=== PATIENT | female | born 1990 | race Caucasian/White ===

== ENCOUNTER → 2017-03-13 06:29 | Observation (INO) ==
--- NOTE | 2017-03-13 02:55 | OB/GYN Progress Note ---
Date of Encounter: 03/13/17 Time of Encounter: 02:35 - Assessment and Plan (1) 38 weeks gestation of Current Visit: Yes Status: Acute (2) Uterine contractions Current Visit: Yes Status: Acute - Negative nitrazine and fern test. - UDS - UA - NST reactive Cervix 2-3/80/-1 if no change on serial exam will discharge back to [facility] with labor and when to return precautions. Subjective - Subjective Principal diagnosis: Labor evaluation Interval history: Patient is a 26 YO F at 38 2/7 weeks gestation with a PMH of delivery and drug abuse that presents for labor evaluation. Patient says that she has experienced vaginal fluid leakage for the past 4 days. She denies any vaginal bleeding. She states that she has also been having contractions 4-7 minutes apart for the past 4 days as well. She admits to good movement. She denies any SEPULVEDA, vision changes, nausea, vomiting, fever, chills, dysuria, and diarrhea. She is currently on subutex. Patient normally smokes 1/2 ppd, but says she has not smoked for the past 3 weeks. Patient is currently in correction and has her care done at [facility]. Antepartum ROS: loss of fluid, movement normal, contractions, no vaginal bleeding Objective - Vital Signs Vital Signs: Intake and Output 03/12/17 03/12/17 03/13/17 15:59 23:59 07:59 Other: Weight 66.1 kg Patient Weight 03/13/17 23:59 Weight 66.1 kg BP: 124/73 HR: 58 FHR: 133 - Exam FHR: auscultation normal FHR comments: baseline 120/ reactive Auscultation: bilateral: normal Abdomen: Present: normal appearance, soft, gravid Cervical dilation: 2-3 cm Cervix effacement: 80% station: -1
[2017-03-13 03:26] LABS: Bilirubin,Urine Negative (Negative); Blood,Urine Negative (Negative); Clarity,Urine Clear (Clear); Color,Urine Yellow (Yellow); Glucose,Urine (UA) Normal (Normal); Ketones,Urine Negative (Negative); Leukocyte Esterase,Urine Negative (Negative); Nitrite,Urine Negative (Negative); PH,Urine 6.5 pH Units (5.0-8.0); Protein,Urine Trace mg/dL (Neg-Trace); Specific Gravity,Urine 1.028 (1.010-1.025); Urobilinogen,Urine Normal (Normal)
[2017-03-13 03:28] LABS: Bacteria,Urine None Seen per hpf (None-Few); Hyaline Casts,Urine None Seen per lpf (None-Few); RBC,Urine 0-3 per hpf (0-3); Squamous Epithelial Cell,Urine Many per lpf (None-Few); WBC,Urine 0-3 per hpf (0-3)
[2017-03-13 03:31] LABS: Amphetamine Screen,Urine Negative ng/mL (Cutoff=1000); Barbiturate Screen,Urine Negative ng/mL (Cutoff=200); Benzodiazepines Screen,Urine Negative ng/mL (Cutoff=200); Cannabinoid Screen,Urine Negative ng/mL (Cutoff = 50); Cocaine Screen,Urine Negative ng/mL (Cutoff= 300); Opiate Screen,Urine Negative ng/mL (Cutoff=300); Phencyclidine Screen,Urine Negative ng/mL (Cutoff=25)
== END | disposition other institution (70) ==
LOC: 1NENULAB
PROVIDERS: ADMIT Advanced Practice Midwife; ATTEND Advanced Practice Midwife

== ENCOUNTER 2017-03-15 00:45 | Inpatient (IN) ==
--- NOTE | 2017-03-14 21:03 | Anesthesia Evaluation PreOp ---
Date of Encounter: 03/14/17 Time of Encounter: 21:01 - Past History Planned Operation: vaginal del, spont labor Cardiac History: Denies any Significant Hx, Other (anemia,) Pulmonary History: Smoker EMU FARMER History: Other (chronic back pain, with parathesia bilateral inner thighs down 2inches according to patient, none position dependant.) Other Medical History: Hepatic (Hep C+.), Other (herpes.) Anesthesia History: Past Anesthesia (previous epidural and PDPH, required 2 blood patches.) Alcohol Use: none Drug use: IV Drug Use, prescription drug abuse, other (on suboxone 12mg QD on occ.) Medications and Allergies Buprenorphine HCl [Subutex] 4 mg SL TID 03/14/17 [History] Ferrous Sulfate [High Potency Iron] 134 mg PO DAILY 03/14/17 [History] Pnv Cmb#21/Iron/Folic Acid [ Complete Caplet] 1 each PO DAILY 03/14/17 [ History] 3 Allergy/AdvReac Type Severity Reaction Status Date / Time No Known Allergies Allergy Verified 03/14/17 20:38 Anesthesia Exam - HEENT Pupil (Motor): Pupils equal Mallampati: II Teeth: Poor dentition Oral Opening: Greater than 3 - EMU FARMER LOC: Oriented EMU FARMER Motor: Normal RUE, Normal LUE, Normal RLE, Normal LLE, Normal Face EMU FARMER Sensory: Normal: RUE, LUE, RLE, LLE, Face - Cardiac Rhythm: Regular Murmur: None - Pulmonary Breath Sounds: bilateral Clear Respiratory Effort: Symmetrical Anesthesia Assess/Plan ASA Score: 2 Modified Ashley Scale for Level of Consciousness: Cooperative, oriented, and tranquil Anesthetic Plan: General, Regional Monitoring Plan: Standard Monitors
[2017-03-14 21:05] LABS: Amphetamine Screen,Urine Negative ng/mL (Cutoff=1000); Barbiturate Screen,Urine Negative ng/mL (Cutoff=200); Benzodiazepines Screen,Urine Negative ng/mL (Cutoff=200); Cannabinoid Screen,Urine Negative ng/mL (Cutoff = 50); Cocaine Screen,Urine Negative ng/mL (Cutoff= 300); Opiate Screen,Urine Negative ng/mL (Cutoff=300); Phencyclidine Screen,Urine Negative ng/mL (Cutoff=25)
--- NOTE | 2017-03-15 00:19 | OB/GYN History & Physical ---
Date of Encounter: 03/15/17 Time of Encounter: 00:04 Assessment and Plan (1) 38 weeks gestation of Current visit: No Status: Acute (2) Uterine contractions Current visit: No Status: Acute Pt 3-4 on admission, now 5cm admit to labor and delivery PCN for GBS Nubain and epidural as desired. Anticipate (3) Positive GBS test Current visit: Yes Status: Acute Will treat with PCN if admitted for labor (4) HSV-2 seropositive Current visit: Yes Status: Acute Not on valtrex suppressive therapy, Speculum exam shows no lesions. (5) Chest pain Current visit: Yes Status: Acute Reports pain for nurses, denies pain during CNM exam, EKG obtained shows bradycardia, with possible right ventricular conduction delay, borderline ECG, Hospitalist consulted. Qualifiers: Chest pain type: unspecified Qualified Code(s): R07.9 - Chest pain, unspecified (6) Hepatitis C Current visit: Yes Status: Acute Qualifiers: Viral hepatitis chronicity: chronic Hepatic coma status: without hepatic coma Qualified Code(s): B18.2 - Chronic viral hepatitis C History of Present Illness Chief complaint: Contractions HPI: Ms. Quick is a 26 year old female presents to triage with complaints of contractions. Pt states she has been having contractions for days, in triage for evaluation on Wednesday AM, states contractions are stronger and more intense than before. Reports good movement, pt states frequent light pink vaginal spotting, denies heavy bright red vaginal bleeding or leaking of fluid. Pt with no other complaints on arrival, but after 2.5 hours of monitoring pt states she felt some chest pain that to RN. Denies any current chest pain during CNM assessment. Pt states the pain was brief and was over her epigastric region when asked to point location. Pt states has had heartburn this last month of . HSV+ but states has never had an outbreak, complicated by history of 35 week delivery, IM progesterone therapy, opiate dependence on subutex, HSV +, Hepatitis C Labs, A+, Rubella immune, GBS +, HSV 1&2 serologies positive, All other serologies negative. Past Med Surg Social Fam HX - Past Medical History Medical history: no medical history Psychiatric history: no psych history - Past Surgical History Surgical History: other - Social History Smoking Status: Current every day smoker Packs per day: less than 1/2 pack a day Smokeless Tobacco Status: No Alcohol use: none Drug use: IV Drug Use, prescription drug abuse, other (on suboxone 12mg QD on occ.) - Family History Mother History Unknown: Yes Living Status: Obstetrical History - Pregnancies : 3 Para: 1 Term: 0 : 1 Ab's: 1 Livin Medications and Allergies Buprenorphine HCl [Subutex] 4 mg SL TID 03/14/17 [History] Ferrous Sulfate [High Potency Iron] 134 mg PO DAILY 03/14/17 [History] Pnv Cmb#21/Iron/Folic Acid [ Complete Caplet] 1 each PO DAILY 03/14/17 [ History] 3 Allergy/AdvReac Type Severity Reaction Status Date / Time No Known Allergies Allergy Verified 03/14/17 20:38 Exam - Constitutional Constitutional: well developed, well nourished, no acute distress, average body habitus - Neck Neck exam: full ROM - Lungs Respiratory exam: CTAB - Cardiovascular Cardiovascular exam: RRR - Abdomen Abdomen: Present: bowel sounds normal, gravid, non tender - Extremities Extremities exam: normal capillary refill, normal inspection Deep Tendon Reflex Grade: 2+ Normal - Vagina Vagina: Present: normal moisture - Cervix Dilation: 5 (Per RN) - Uterus Uterus exam: Present: normal size, normal contour Results All other labs normal. - VTE Reasons for not Prescribing Prophylaxis: Treatment not Indicated - Low risk for VTE
[~2017-03-15 00:45] MED LIST: Famotidine 20 MG/2 ML VIAL IVP PRN; Metoclopramide 10 MG/2 ML VIAL IVP PRN; Naloxone 0.4 MG/ML INJ IVP PRN; Ondansetron 4 MG/2 ML VIAL IVP PRN; Ringers Solution, Lactated 1,000 ML IVC SCH
[2017-03-15] MEDS ORDERED: Penicillin G Potassium 5,000,000 UNIT in D5% in Water 100 ML IVPB ONE (00:48)
[2017-03-15] MEDS ORDERED: Ringers Solution, Lactated 1,000 ML ONE ×2 (00:53→01:56)
[2017-03-15 01:17] LABS: Basophils % 0.2 %; Eosinophils # 0.1 K/mcL (0.0-0.6); Eosinophils % 1.2 %; Hematocrit 30.9 % (35.3-44.9); Hemoglobin 10.6 g/dL (11.5-15.4); Immature Granulocytes % 0.3 % (0-4); Immature Platelets 8.5 % (1.1-6.1); Lymphocytes # 1.8 K/mcL (0.6-4.6); Lymphocytes % 20.2 %; Mean Corpuscular HGB Conc 34.3 g/dL (31.6-35.5); Mean Corpuscular Hemoglobin 31.7 pg (28.0-33.3); Mean Corpuscular Volume 92.5 fL (83.0-100.0); Mean Platelet Volume 11.2 fL (9.4-12.4); Monocytes # 0.6 K/mcL (0.0-1.3); Monocytes % 6.2 %; Neutrophils # 6.4 K/mcL (1.6-8.9); Platelet Count 137 K/mcL (140-400); Red Blood Count 3.34 M/mcL (3.82-4.97); Red Cell Distribution Width 13.4 % (11.5-14.5); Segmented Neutrophils % 71.9 %
[2017-03-15] MEDS ORDERED: Epidural Premix (fent/bupiv) 110 ML EP ONE ×2 (01:28→06:58)
--- NOTE | 2017-03-15 02:05 | Anesthesia Procedures ---
Date of Encounter: 03/15/17 Time of Encounter: 01:41 Procedures: Anesthesia - Epidural/Spinal Patient ID/Chart reviewed: Yes Patient examined: Yes OB Eval: Gestational age: term OB Eval: : 3 OB Eval: Hx Para: 1 OB Eval: Dilated at (cm): 5 OB Eval: Contractions: Non-stressed pattern Consent Obtained: Yes Supplemental Oxygen: None/Room Air Site Prep: Aseptic Technique, Sterile prep and drape, 0.5% Chlorhexidine/Alcohol Patient position: upright Local Anesthetic: Lidocaine 1% Amount of Local Anesthetic used: 2 Touhy Needle Gauge: 18 Touhy Needle Depth (cm): 5 Catheter Depth at Skin (cm): 9 Test Dose (1.5% Lido + Epi): Volume given (mls): 3 Test Dose Result: Negative Loading Dose: Other: 12ml from solution Loading Dose Administered: Thru Catheter Infusion Med: 0.125% Bupivacaine w/ 2 mcg/ml Fentanyl Infusion Rate (mls/hr): [address]: Tegaderm, Tape Interspace Used: L3-L4 Loss of Resistance (MARIA DE JESUS): Yes (saline) Blood: No CSF: No Paresthesia: No Procedure: vss though out, FHR stable per RN's
--- NOTE | 2017-03-15 03:49 | OB Labor Progress Note ---
Date of Encounter: 03/15/17 Time of Encounter: 03:42 Labor Progress Note - Subjective Subjective: Pt resting comfortable with epidural . - Cervix Cervix: 6/80/0 - Heart Tones Heart Tones: 135/moderate/+accels/-decels - [place]: 2-4 - Plan Plan: Continue current management PCN for GBS Anticipate
--- NOTE | 2017-03-15 03:55 | Internal Medicine Consult Note ---
Date of Encounter: 03/15/17 Time of Encounter: 01:00 - Assessment and Plan (1) Chest pain Current Visit: Yes Status: Acute Assessment and plan: -Symptoms have resolved and no ST/T-wave changes on EKG. -No further medical management needed. -Will sign off. Please call hospital team with any further questions or concerns. Qualifiers: Chest pain type: unspecified Qualified Code(s): R07.9 - Chest pain, unspecified Internal Medicine - CN: HPI - Data of Consult Consult date: 03/15/17 Requesting Physician: Fan Coronado MD - Consult Narrative Reason for consult: chest pain History of present illness: Patient is a 26-year-old female 3 para 1 at 30 weeks gestation with new onset of chest pain. Patient reported of an intermittent chest pressure that has now resolved. Of note, patient has been evaluated in the past for chest pressure at [facility] with a negative workup. Patient does admit to mood disorders including bipolar and anxiety and admits to not taking any medications. EKG was obtained by care companion and reviewed by myself which showed no acute ST/T- wave changes; vital signs stable per care companion. She is a smoker but no other risk factors. Past Med Surg Social Fam HX - Past Medical History Medical history: no medical history Psychiatric history: no psych history - Past Surgical History Surgical History: other - Social History Smoking Status: Current every day smoker Packs per day: less than 1/2 pack a day Smokeless Tobacco Status: No Alcohol use: none Drug use: IV Drug Use, prescription drug abuse, other (on suboxone 12mg QD on occ.) - Family History Mother History Unknown: Yes Living Status: All systems: reviewed and no additional remarkable complaints except as stated ( chest pressure) Internal Medicine - CN: Meds Buprenorphine HCl [Subutex] 4 mg SL TID 03/14/17 [History] Ferrous Sulfate [High Potency Iron] 134 mg PO DAILY 03/14/17 [History] Pnv Cmb#21/Iron/Folic Acid [ Complete Caplet] 1 each PO DAILY 03/14/17 [ History] 3 Allergy/AdvReac Type Severity Reaction Status Date / Time No Known Allergies Allergy Verified 03/14/17 20:38 Internal Medicine - CN: Exam - Constitutional General appearance IM: Present: A&O X 3 - Head Head exam: Present: normocephalic - Eye Eye exam: Present: normal appearance - ENT ENT exam: Present: mucous membranes moist - Cardiovascular Additional comments: Regular rate and rhythm no murmurs rubs or gallops - GI/Abdominal Additional comments: Gravid abdomen - Extremities Exam Extremities exam IM: Present: pedal edema - Neurological Exam Neurological exam: Present: alert, oriented X3 - Psychiatric Psychiatric exam: Present: normal mood - Skin Skin exam IM: Present: normal color Internal Medicine - CN: Reslt - Labs CBC & Chem 7: 03/15/17 01:00 Labs: Short CBC 03/15/17 Range/Units 01:00 WBC 8.9 (4.3-11.1) K/mcL Hgb 10.6 L (11.5-15.4) g/dL Hct 30.9 L (35.3-44.9) % Plt Count 137 L (140-400) K/mcL Neutrophils # 6.4 (1.6-8.9) K/mcL
[2017-03-15] MEDS ORDERED: Penicillin G Potassium 2,500,000 UNIT in D5% in Water 100 ML IVPB SCH (04:30)
[2017-03-15] MEDS ORDERED: Oxytocin 20 units/ LR 1000 mL 20 UNIT/1,000 ML BAG IVC ONE (08:05)
--- NOTE | 2017-03-15 08:09 | OB Labor Progress Note ---
Date of Encounter: 03/15/17 Time of Encounter: 08:07 Labor Progress Note - Subjective Subjective: Pt resting comfortably in bed, asleep. When awakened, states she is having some slight back pain. - Cervix Cervix: Ant lip, 0 station - Heart Tones Heart Tones: 140 bpm, moderate variability, + 15x15 accels, no decels. - Minerva Minerva: 3 min - Interventions Interventions: SVE, AROM for moderate amount of clear fluid. - Plan Plan: Continue labor management Anticipate
--- NOTE | 2017-03-15 10:54 | OB/GYN Procedure Note ---
Delivery - Delivery Date: 03/15/17 Provider: Neelam Staley (Jasmeet Tavares RN) Intrapartum events: none Delivery induction: none Delivery augmentation: rupture of membranes Delivery monitor: external FHT, external uterine Anesthesia: epidural Estimated Blood Loss: 200 - Infant (s) A Infant Delivery Date: 03/15/17 Delivery Time: 10:36 Presentation: vertex Position: LALIT Route of delivery: Gender: Female Viability: Viable Pounds: 6 Ounces: 9 Weight Gram: 2965 kg at 1 minute: 9 at 5 mins: 9 Shoulder Dystocia: not encountered Placenta: spontaneous Cord: 3 umbilical vessels - Repair Episiotomy: none Laceration Description: Periurethral (Right side, Hemostatic, no repair) - Complications Delivery complications: none Delivery comments: Under maternal effort spontaneous vaginal delivery of viable female infant over intact perineum. Right periurethral laceration noted, hemostatic, no repair. to maternal abdomen, cord clamped and cut after pulsation ceased. Spontaneous delivery of intact placenta. EBL 200 mL. No nuchal cord, shoulder dystocia or meconium encountered. Mother and stable for 2 hour recovery. - Disposition Mom disposition: stable in LDR disposition: stable in LDR
[2017-03-15] MEDS ORDERED: Measles/Mumps/Rubella Vacc 0.5 ML VIAL SQ PRN (11:04)
[2017-03-15] MEDS ORDERED: Ibuprofen 600 MG TABLET PO PRN (11:04)
[2017-03-15] MEDS ORDERED: Oxytocin 20 units/ LR 1000 mL 20 UNIT/1,000 ML BAG IVC SCH (11:04)
[2017-03-15] MEDS ORDERED: Acetaminophen 325 MG TABLET PO PRN (11:04)
[2017-03-15] MEDS: *HR* Buprenorphine HCl 8 MG TAB.SUBL SL SCH ×3 (11:32→21:18)
--- NOTE | 2017-03-15 15:13 | Electrocardiograph Report ---
[address] [place], [place] [address] Test Date: 2017-03-15 Pat Name: Kita Quick Department: 101 Room: [facility] Gender: F Student Teacher: BERNARDA : 1990 Requested By: Steffi Taylor Order Number: [id number] Reading MD: Bravo Marie MD Measurements Intervals Martin Rate: 53 P: 19 ME: 147 QRS: 74 QRSD: 89 T: 9 QT: 409 QTc: 393 Interpretive Statements SINUS BRADYCARDIA Electronically Signed On 03-15-2017 15:12:23 EST by Bravo Marie MD
[2017-03-16 08:11] VITALS: BP 118/64
[2017-03-16] MEDS: *HR* Buprenorphine HCl 8 MG TAB.SUBL SL SCH ×2 (08:29→14:31)
--- NOTE | 2017-03-16 08:35 | Discharge Summary ---
Date of Encounter: 03/16/17 Time of Encounter: 06:15 - Discharge Diagnosis (1) Status post normal vaginal delivery Priority: Primary Status: Resolved (2) HSV-2 seropositive Priority: Primary Status: Acute (3) Hepatitis C Priority: Primary Status: Chronic Qualifiers: Viral hepatitis chronicity: chronic Hepatic coma status: without hepatic coma Qualified Code(s): B18.2 - Chronic viral hepatitis C (4) Positive GBS test Priority: Primary Status: Acute (5) 38 weeks gestation of Priority: Primary Status: Acute - Discharge Medications Prescriptions: Ibuprofen [Motrin] 600 mg PO Q6HR PRN #60 tablet PRN Reason: Cramping Docusate [Colace] 100 mg PO BID #30 capsule Home Medications: Buprenorphine HCl [Subutex] 4 mg SL TID 03/14/17 [History] Pnv Cmb#21/Iron/Folic Acid [ Complete Caplet] 1 each PO DAILY 03/14/17 [ History] Docusate [Colace] 100 mg PO BID #30 capsule 03/16/17 [Rx] Ibuprofen [Motrin] 600 mg PO Q6HR PRN #60 tablet 03/16/17 [Rx] Allergies/Adverse Reactions: 3 Allergy/AdvReac Type Severity Reaction Status Date / Time No Known Allergies Allergy Verified 03/14/17 20:38 Data Procedures and tests throughout hospitalization: Laboratory Tests 03/14/17 03/15/17 20:49 01:00 WBC 8.9 RBC 3.34 L Hgb 10.6 L Hct 30.9 L MCV 92.5 MCH 31.7 MCHC 34.3 RDW 13.4 Plt Count 137 L MPV 11.2 Immature Gran % 0.3 Seg Neutrophils % 71.9 Lymphocytes % 20.2 Monocytes % 6.2 Eosinophils % 1.2 Basophils % 0.2 Neutrophils # 6.4 Lymphocytes # 1.8 Monocytes # 0.6 Eosinophils # 0.1 Basophils # 0.0 Immature Plt Fraction 8.5 H Urine Opiates Screen Negative Ur Barbiturates Screen Negative Ur Phencyclidine Scrn Negative Ur Amphetamines Screen Negative U Benzodiazepines Scrn Negative Urine Cocaine Screen Negative U Marijuana (THC) Screen Negative Date of admission: 03/15/17 00:45 Consults: 03/15/17 11:04 Consult to Chronograph Operator [CONS] Routine Comment: Vaginal delivery, consult needed Consult to Numerical Control Nesting Operator [CONS] Routine Reason for SW Consult: Subutex Discharging clinician: Salvador Chew Anticipated date of discharge: 03/16/17 - Patient Status Disposition: Home, Self-Care Condition: Good Functional capacity at discharge: independent ambulation Overall status at discharge: patient is progressing back to baseline - Discharge Instructions - Diet and Activity Activity: resume usual activities as tolerated Diet: regular diet Hospital Course Reason for admission: IUP at term Delivery: Episiotomy: none Laceration: other (Right periurethral, hemostatic, no repair) Other procedures: none complications: none Discharge diagnosis: IUP at term delivered baby: female Hospital course: Ms. Quick is a 26 year old female that presented to triage with complaints of contractions. Pt stated she had been having contractions for days , in triage for evaluation on Wednesday AM, stated contractions were stronger and more intense than before. Reported good movement, stated frequent light pink vaginal spotting, denied heavy bright red vaginal bleeding or leaking of fluid. Pt with no other complaints on arrival, but after 2.5 hours of monitoring pt stated she felt some chest pain to RN. Denied any current chest pain during CNM assessment. Pt stated the pain was brief and was over her epigastric region when asked to point location. Pt stated she has had heartburn this last month of . EKG revealed sinus major with no ischemic changes. HSV+ but states has never had an outbreak, complicated by history of 35 week delivery, IM progesterone therapy, opiate dependence on subutex, HSV +, Hepatitis C. Under maternal effort spontaneous vaginal delivery of viable female over intact perineum. Right periurethral laceration noted, hemostatic, no repair. to maternal abdomen, cord clamped and cut after pulsation ceased. Spontaneous delivery of intact placenta. EBL 200 mL. No nuchal cord, shoulder dystocia or meconium encountered. When seen today, patient says she is doing well and is in good mood. She has been bottle feeding since the baby has been having trouble latching on. She has been complaining of swelling in both her legs. She has a good appetite and has been able to ambulate well. She has had a bowel movement and has been able to void. Her vaginal bleeding has been light and improving since the delivery. She denies any chest pain, headaches, nausea, vomiting, fever, chills, or shortness of breath. Patient is currently serving a retirement sentence and will be discharged back to police custody. She will follow-up with her PCP provided in retirement. Delivery - Delivery Date: 03/15/17 Provider: Neelam Staley (Jasmeet Tavares RN) Intrapartum events: none Delivery induction: none Delivery augmentation: rupture of membranes Delivery monitor: external FHT, external uterine Anesthesia: epidural Estimated Blood Loss: 200 - (s) Infant A Infant Delivery Date: 03/15/17 Infant Delivery Time: 10:36 Presentation: vertex Position: LALIT Route of delivery: Gender: Female Viability: Viable Pounds: 6 Ounces: 9 Weight Gram: 2965 kg at 1 minute: 9 at 5 mins: 9 Shoulder Dystocia: not encountered Placenta: spontaneous Cord: 3 umbilical vessels - Repair Episiotomy: none Laceration Description: Periurethral (Right side, Hemostatic, no repair) - Complications Delivery complications: none Time Attestation: Total time spent providing and/or coordinating discharge services: Time Spent: Less than 30 minutes Exam - Constitutional Vitals: Temp Pulse Resp BP Pulse Ox 97.6 F 48 12 118/64 99 03/16/17 08:00 03/16/17 08:00 03/16/17 08:00 03/16/17 08:00 03/16/17 08:00 General appearance IM: A&O X 3, pleasant, no acute distress, answers questions appropriately - Respiratory Respiratory exam: Present: CTAB - Cardiovascular Cardiovascular exam IM: Present: RRR, +S1, +S2 - GI/Abdominal GI/Abdominal exam IM: normal bowel sounds, soft, tenderness (Minor diffuse tenderness. ) - Uterine Tone: Firm - Extremities Exam Extremities exam IM: Present: full ROM, normal inspection, pedal edema (+1 pitting edema bilaterally. ), radial pulses palpable and symmetrical
[2017-03-16] MEDS ORDERED: Prenatal Vit/FA 1 EACH TABLET PO SCH (09:00)
[2017-03-16] MEDS ORDERED: FLUARIX QUAD 2017-18 36MOS UP/PF 0.5 ML SYRINGE IM ONE (10:00)
== END 2017-03-16 14:45 | disposition home or self-care (01) | DRG 560 ==
LOC: 1NENULAB → 1NENUOBS 13:25
PROVIDERS: ADMIT Obstetrics & Gynecology; ATTEND Obstetrics & Gynecology